=== PATIENT | female | born 1960 | race African-American/Black ===

== ENCOUNTER 2017-09-29 21:58 | Emergency (ER) | payer OTHER, BC ==
[~2017-09-29] VITALS: Ht 167.6 cm; Wt 84.0 kg
[~2017-09-29 21:58] MED LIST: CALC625 PO; DILA2TAB4 PO; OYST500T77 PO; TAB-TAB PO; [UNRECOGNIZED DRUG - OTHER]
[2017-09-29 22:06] VITALS: BP 144/65; PULSE 77; RESP 18; TEMP 98.5; O2SAT 98
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
== END 2017-09-29 23:22 | disposition home or self-care (01) ==
LOC: NEPD 21:58
DX: S40.021A Contusion of right upper arm, initial encounter (principal); V49.50XA Passenger injured in collision with unspecified motor vehicles in traffic accident, initial encounter; Z79.899 Other long term (current) drug therapy
CPT/HCPCS: 73060; 99283